=== PATIENT | female | born 1995 | race Hispanic/Latino ===

== ENCOUNTER 2018-08-08 20:56 | Emergency (ER) | payer OTHER, SELFPAY ==
[2018-08-08] MEDS ORDERED: IBUPROFEN 400 MG TAB ONE (22:01)
[2018-08-08] MEDS ORDERED: IBUPROFEN 200 MG TAB PO ONE (22:01)
[2018-08-08] MEDS ORDERED: CYCLOBENZAPRINE 10 MG TAB ONE (22:01)
[2018-08-08] MEDS ORDERED: CODEINE 30MG/APAP 300MG TAB ONE (22:01)
[2018-08-08 22:02] LABS: Urine Blood NEGATIVE (NEG); Urine Glucose 1+ (NEG); Urine Protein TRACE (NEG); Urine pH 5.5 (5.0-7.0)
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
[2018-08-08] MEDS ORDERED: ONDANSETRON 4 MG (ODT) TAB ONE (22:30)
[2018-08-09 01:04] VITALS: BP 118/60; TEMP 97.5; O2SAT 99
== END 2018-08-08 22:39 | disposition home or self-care (01) ==
LOC: ER 20:56
DX: S16.1XXA Strain of muscle, fascia and tendon at neck level, initial encounter (principal); V43.52XA Car driver injured in collision with other type car in traffic accident, initial encounter
CPT/HCPCS: 70450; 72125; 81003; 81025; 99284